=== PATIENT | female | born 1945 | race Caucasian/White ===

== ENCOUNTER 2016-03-19 17:07 | Inpatient (IN) | payer MEDICARE, BC ==
[~2016-03-19] VITALS: Ht 152.4 cm; Wt 67.7 kg
--- NOTE | 2016-03-19 17:21 | NUR ---
RECEIVED PT VIA WHEELCHAIR A DIRECT ADMIT. ORIENTED PT TO ROOM. OBTAINED HISTORY AND MED LIST. BED IN LOW POSITION AND CALL LIGHT WITHIN REACH. WILL CONTINUE TO MONITOR.
[2016-03-19] MEDS ORDERED: GLUCOPHAGE1000 MG PO (17:25)
[2016-03-19] MEDS ORDERED: BIAXIN 500 MG500 MG PO (17:25)
[2016-03-19] MEDS ORDERED: GLIPIZIDE10 MG PO (17:26)
[2016-03-19] MEDS ORDERED: BENICAR HCT 40-1 TA1 PO (17:26)
[2016-03-19] MEDS ORDERED: ADVAIR 250/501 DISK INH (17:26)
[2016-03-19] MEDS ORDERED: NORVASC2.5 MG PO (17:27)
[2016-03-19] MEDS ORDERED: ZOLOFT100 MG PO (17:28)
[2016-03-19] MEDS ORDERED: JANUVIA100 MG PO (17:28)
[2016-03-19] MEDS ORDERED: MOBIC7.5 MG PO (17:29)
[2016-03-19] MEDS ORDERED: FLUTICASONE PRO16 GM NASAL (17:29)
[2016-03-19] MEDS ORDERED: VICTOZA0.6 MG/0.1 SQ (17:32)
--- NOTE | 2016-03-19 18:20 | NUR ---
22G IV SITED TO THE RIGHT FOREARM. FLUSHED WITH 10CC OF NS AND SECURED WITH OP-SITE AND TAPE. FLUIDS STARTED TO IV SITE PER ORDER. URINE SPECIMEN OBTAINED AT THIS TIME. BED IN LOW POSITIOIN AND CALL LIGHT WITHIN REACH. WILL CONTINUE TO MONITOR.
[2016-03-19 18:30] VITALS: BP 143/67; Ht 152.4 cm; Wt 67.7 kg
[2016-03-19 18:47] LABS: BASOPHILS 0.1 % (0.0-2.0); EOSINOPHILS 0.1 % (0-7); HEMOGLOBIN 13.5 g/dL (12-16); IMMATURE GRANULOCYTES 0.4 % (0-5); LYMPHOCYTES 11.1 % (15-50); MCH 31.3 pg (26.0-34.0); MCHC 34.6 g/dL (31.0-37.0); MCV 90.5 fL (80.0-100.0); MEAN PLATELET VOLUME 9.2 fL (7.4-10.4); MONOCYTES 5.8 % (2-11); NEUTROPHILS 82.5 % (40-80); PLATELET COUNT 226 10x3/uL (130-400); RBC 4.31 10x6/uL (4.00-5.40); RDW 13.7 % (11.5-14.5); WBC 17.5 10x3/uL (4.8-10.8)
[2016-03-19 19:00] LABS: APPEARANCE HAZY (CLEAR); BILIRUBIN NEGATIVE (NEGATIVE); COLOR DK YELLOW (YELLOW); GLUCOSE NEGATIVE (NEGATIVE); KETONE SMALL mg/dL (NEGATIVE); LEUKOCYTE ESTERASE TRACE (NEGATIVE); NITRITE NEGATIVE (NEGATIVE); PROTEIN TRACE mg/dL (NEGATIVE); UROBILINOGEN NORMAL (NORMAL)
[2016-03-19 19:02] LABS: BACTERIA FEW /hpf (NONE SEEN); MUCUS <1+ /lpf (NONE SEEN); RED CELLS - URINE 0-5 /hpf (0-5)
[2016-03-19 19:02] LABS: ALBUMIN 3.2 g/dL (3.4-5.0); ALKALINE PHOSPHATASE 79 U/L (46-116); ALT (SGPT) 35 U/L (10-68); BILIRUBIN - TOTAL 0.52 mg/dL (0.2-1.3); CALC OSMOLALITY 272 mosm/kg (275-300); CALCIUM 9.3 mg/dL (8.5-10.1); CARBON DIOXIDE 26.6 mmol/L (21.0-32.0); CHLORIDE - SERUM 98 mmol/L (98-107); CREATININE - SERUM 0.7 mg/dL (0.6-1.3); GLUCOSE 152 mg/dL (74-106); POTASSIUM - SERUM 3.5 mmol/L (3.5-5.1); PROTEIN - SERUM 7.2 g/dL (6.4-8.2); SODIUM 135 mmol/L (136-145); UREA NITROGEN 13 mg/dL (7-18); eGFR NON AFRICAN AMERICAN 88 mL/min (90-120)
--- NOTE | 2016-03-19 19:45 | NUR ---
PT RECEIVED AT THIS TIME. DAUGHTER AT [facility]. PROVIDED PT WITH SANDWICH TRAY AND ICE WATER AT HER REQUEST. AKHIL FURTHER NEEDS AT THIS TIME. RESPIRATIONS EVEN, BUT SHALLOW. OXYGEN ON 2L VIA NC. DENIES NEEDS AT PRESENT TIME. CALL LIGHT IN REACH, WILL CONTINUE WITH PLAN OF CARE.
--- NOTE | 2016-03-19 21:26 | NUR ---
SCHEDULED MEDICATIONS ADMINISTERED AT THIS TIME. FSBS CHECKED AND PT 191. DISCUSSED WITH DR BRADLEY THAT PT IS ON AN INTERMEDIATE SLIDING SCALE ACHS AT HOME AND HE STATED THAT HE WOULD LOOK AT IT AND GET SOMETHING ORDERED. ASSESSMENT PERFORMED PER FLOWSHEET. AT BEDSIDE. BED IN LOWEST POSITION AND LOCKER, SRX1. CALL LIGHT IN REACH, WILL CONTINUE WITH PLAN OF CARE.
[2016-03-19] MEDS ORDERED: NOVOLOG100 U/M1 SC (22:18)
--- NOTE | 2016-03-19 23:59 | NUR ---
HUMALOG 4 UNITS ADMINISTERED PER SLIDING SCALE FOR FSBS 191. TYLENOL 1,000MG ADMINISTERED FOR RIGHT FLANK PAIN 6/10 SECONDARY TO PT'S KIDNEY STONE. DENIES FURTHER NEEDS, HOME C-PAP IN USE WITH 2L OF OXYGEN. CALL LIGHT IN REACH, BED IN LOWSEST POSITION AND PT DENIES FURTHER NEEDS. WILL CONTINUE WITH PLAN OF CARE.
[2016-03-20] VITALS: BP 121/59
--- NOTE | 2016-03-20 02:00 | NUR ---
ASSISTED PT UP TO BATHROOM WHERE SHE VOIDED WITHOUT DIFFICULTY AT THIS TIME. ASSISTED BACK TO BED, CALL LIGHT IN REACH AND C-PAP RE-APPLIED. WILL CONTINUE WITH PLAN OF CARE.
[2016-03-20 04:00] VITALS: BP 130/59
--- NOTE | 2016-03-20 05:48 | HP ---
PATIENT: KAYDEN MUJICA MEDICAL RECORD: [id number] ACCOUNT: [id number] LOCATION:D.MS [id number] : 45 ADMISSION DATE: 03/19/16 HISTORY AND PHYSICAL EXAMINATION REASON FOR ADMISSION: Cough with fevers. HISTORY OF PRESENT ILLNESS: The patient is a 70-year-old female with history of reactive airway disease and metabolic syndrome. She presented to my office last week and had symptoms of the flu, but was flu negative. She was treated with antibiotics and Medrol Dosepak. She felt much better until 3 days ago with the onset of fever as high as 101 in the last 3 days, increasing cough and congestion. In addition, she has known bilateral kidney stones and was due for lithotripsy tomorrow at [facility]. Her brought her in because she was having more cough and just felt generally bad and has had some nausea with intermittent vomiting, but denies abdominal pain. Her exam in the office, she was febrile with temperature of 100 degrees Fahrenheit. She had crackles in the right base and chest x-ray showing an early infiltrate. She is now admitted for IV antibiotics. PAST MEDICAL HISTORY: Asthmatic bronchitis, reactive airway disease, remote cholelithiasis, type 2 diabetes mellitus, diverticulosis, diverticulitis, hyperlipidemia, osteoarthritis, multiple renal stones, history of sciatic, cervicalgia and essential hypertension. PAST SURGICAL HISTORY: She has had TAHBSO and cystocele repair in 1997. HOME MEDICATIONS: Advair 250/50 one puff b.i.d., amlodipine 2.5 mg p.o. b.i.d., Benicar 40/25 one p.o. q.a.m., Flonase nasal spray 2 nasal sprays each nostril daily, glipizide 10 mg p.o. b.i.d., Januvia 100 mg p.o. daily, sertraline 100 mg p.o. daily and Victoza 18 mcg per 3 cc 1.2 mg subq daily. She is recently on clarithromycin 500 mg b.i.d. SOCIAL HISTORY: , nonsmoker and nondrinker. ALLERGIES: SULFA, LISINOPRIL AND STATIN. FAMILY HISTORY: Positive for hypertension and Parkinson disease. REVIEW OF SYSTEMS: GENERAL: She has had fever in the last few days as mentioned with fatigue and poor appetite. HEENT: No recent visual change, plus sinus congestion, no hearing difficulty or sore throat. RESPIRATORY: Intermittent cough has been minimally productive, now, having pain in her anterior chest when she coughs. Mild exertional dyspnea. No hemoptysis. GASTROINTESTINAL: She has had some nausea without vomiting, change in stools or blood per rectum. GENITOURINARY: She has had intermittent flank pain and intermittent dysuria, no hematuria. MUSCULOSKELETAL: Lumbago without sciatica. INTEGUMENT: No rash or itching. PSYCHIATRIC: Denies depress mood. PHYSICAL EXAMINATION: HISTORY AND PHYSICAL [id number] KAYDEN MUJICA VITAL SIGNS: Temperature is 100 degrees Fahrenheit, blood pressure 110/70, heart rate is 90 and regular and sats 93% on room air. GENERAL: The patient appears mildly ill. HEENT: Normocephalic. Eyes are clear. Throat with mild erythema. Nose with boggy turbinates. CHEST: She has some crackles and wheezes in the right base and left upper lobe. No E to A change. HEART: Regular rate and rhythm. ABDOMEN: Soft and nontender. PELVIC: Deferred. EXTREMITIES: No CC&E. LABORATORY DATA: Chest x-ray shows a right lower lobe infiltrate. ASSESSMENT: 1. Community-acquired pneumonia, right lower lobe. 2. History of reactive airway disease. 3. Metabolic syndrome. 4. Hypertension. PLAN: The patient will be admitted to the hospital for blood and urine cultures, pulmonary toilet with DuoNeb updrafts q.4 hours, IV fluids, IV Levaquin and Zithromax. Further workup to follow. We will cancel her lithotripsy for tomorrow. TRANSINT:[id number] Voice Confirmation ID: [id number] DOCUMENT ID: [id number] PHILL FERRARI MD at 0548 CC: [id number] DICTATION DATE: 03/19/161729 OUTSIDE PARTS SALESMAN: 03/19/162001 ADM IN [facility] [address] [place] [address]
[2016-03-20 06:34] LABS: BASOPHILS 0.2 % (0.0-2.0); EOSINOPHILS 0.8 % (0-7); HEMATOCRIT 35.7 % (36.0-48.0); IMMATURE GRANULOCYTES 0.5 % (0-5); LYMPHOCYTES 23.3 % (15-50); MCH 30.8 pg (26.0-34.0); MCHC 33.6 g/dL (31.0-37.0); MCV 91.5 fL (80.0-100.0); MEAN PLATELET VOLUME 8.9 fL (7.4-10.4); MONOCYTES 6.5 % (2-11); NEUTROPHILS 68.7 % (40-80); PLATELET COUNT 214 10x3/uL (130-400); RDW 13.8 % (11.5-14.5); WBC 13.2 10x3/uL (4.8-10.8)
[2016-03-20 06:40] LABS: CALC OSMOLALITY 276 mosm/kg (275-300); CALCIUM 8.7 mg/dL (8.5-10.1); CARBON DIOXIDE 27.1 mmol/L (21.0-32.0); CHLORIDE - SERUM 102 mmol/L (98-107); CREATININE - SERUM 0.7 mg/dL (0.6-1.3); GLUCOSE 107 mg/dL (74-106); POTASSIUM - SERUM 3.6 mmol/L (3.5-5.1); SODIUM 139 mmol/L (136-145); UREA NITROGEN 11 mg/dL (7-18); eGFR NON AFRICAN AMERICAN 88 mL/min (90-120)
--- NOTE | 2016-03-20 07:30 | NUR ---
RECIEVED PT DURING WALKING ROUNDS. PT RESTING IN BED WITH COMPLAINTS OF FLANK PAIN OF A 6 ON A SCALE OF 1-10. ASSESSMENT DONE PER FLOWSHEET. BED IN LOW POSITION AND CALL LIGHT WITHIN REACH. WILL CONTINUE TO MONITOR.
[2016-03-20 07:59] VITALS: BP 127/68
--- NOTE | 2016-03-20 08:39 | NUR ---
PAIN MEDICATION GIVEN PER ORDER AT THIS TIME.
--- NOTE | 2016-03-20 10:13 | NUR ---
SPOKE WITH PT AT THIS TIME, STATES PAIN IS NOT MUCH BETTER. RATES THE PAIN AT A 5 ON A SCALE OF 1-10. SPOKE WITH DR. FERRARI NURSE AT THIS TIME AND RECIEVED AN ORDER FOR A K-PAD FOR FLANK PAIN. WILL PLACE ORDER AND CONTINUE TO MONITOR.
--- NOTE | 2016-03-20 10:15 | NUR ---
PATIENT UP AMBULATING IN HALLWAY WITH PT. NO SIGNS OF DISTRESS NOTED.
[2016-03-20 11:45] VITALS: BP 135/60
--- NOTE | 2016-03-20 15:25 | NUR ---
Patient Name: KAYDEN MUJICA Admission Status: Urgent Accout number: [id number] Admission Date: 03-19-2016 : 1945 Admission Diagnosis: Attending: WES Current LOS: 1 Anticipated DC Date: 03-23-2016 Planned Disposition: Home Primary Insurance: MEDICARE A & B Discharge Planning Comments: CM MET WITH PATIENT REGARDING D/C NEEDS AND PLANS. PATIENT STATED SHE LIVES WITH HER SPOUSE (YAZMIN) AND HE WILL PICK HER UP AT DISCHARGE. PATIENT STATED THERE ARE 15 STEPS W/RAILS TO ENTER HOME AND 1 FLIGHT W/RAILS INSIDE HOME. PATIENT IS INDEPENDENT WITH HER CARE AND HAS NO DME AT HOME. PATIENTS PCP IS DR. FERRARI AND PHARMACY IS [facility]. PATIENT DOES NOT WANT HH AT DISCHARGE. CM WILL CONTINUE TO FOLLOW PATIENT WITH D/C NEEDS AND PLANS. PCP [facility] [phone] YAZMIN MUJICA (SPOUSE) [phone] Cosmetic Manager: Dawn Renteria Is the patient Alert and Oriented? Yes 0 * How many steps to enter\exit or inside your home? 15 W/RAILS 0 * PCP DR. FERRARI 0 * Pharmacy [facility] 0 * Preadmission Environment Home with Family 0 * ADLs Independent 0 * Equipment None 0 * List name and contact numbers for known caregivers / representatives who currently or will assist patient after discharge: YAZMIN MUJICA (SPOUSE) [phone] 0 * Community resources currently utilized None 0 * Additional services required to return to the preadmission environment? Yes 0 * Can the patient safely return to the preadmission environment? Yes 0 * Has this patient been hospitalized within the prior 30 days at any hospital? No 0 Grand Total: 0
[2016-03-20 15:46] VITALS: BP 118/61
[2016-03-20 19:00] VITALS: BP 141/54
--- NOTE | 2016-03-20 22:47 | NUR ---
SCHEDULED MEDICATIONS ADMINISTERED AT THIS TIME. FSBS 159 AND TREATED WITH 2 UNITS OF HUMULIN PER SLIDING SCALE. ASSESSMENT PERFORMED PER FLOW SHEET. PT USING HOME C-PAP WITH 2L OF OXYGEN AT THIS TIME. DENIES PAIN OR NEEDS. CALL LIGHT IN REACH, BED IN LOWEST POSITION AND LOCKED. WILL CONTINUE WITH PLAN OF CARE.
[2016-03-21] VITALS: BP 118/52
--- NOTE | 2016-03-21 | NUR ---
PT COMPLAINS THAT IV TO RIGHT FOREARM IS TENDER TO TOUCH. IV SITE CHECKED FOR BLOOD RETURN, WHICH THERE WASN'T ANY. 22G IV SITED TO PT'S LEFT FOREARM X3 ATTEMPTS. PT TOLERATED WITH MINIMAL C/O PAIN. EXISTING IV TO RIGHT FOREARM D/C WITH CATH TIP INTACT. IV FLUIDS AND ANTIBIOTIC INFUSION RE-INIATED. DENIES NEEDS AT PRESENT TIME. CALL LIGHT IN REACH, WILL CONTINUE WITH PLAN OF CARE.
[2016-03-21 04:00] VITALS: BP 140/62
[2016-03-21 06:21] LABS: BASOPHILS 0.3 % (0.0-2.0); EOSINOPHILS 2.4 % (0-7); HEMATOCRIT 34.4 % (36.0-48.0); HEMOGLOBIN 11.3 g/dL (12-16); IMMATURE GRANULOCYTES 1.1 % (0-5); LYMPHOCYTES 36.4 % (15-50); MCH 30.3 pg (26.0-34.0); MCHC 32.8 g/dL (31.0-37.0); MCV 92.2 fL (80.0-100.0); MEAN PLATELET VOLUME 8.9 fL (7.4-10.4); MONOCYTES 7.9 % (2-11); NEUTROPHILS 51.9 % (40-80); PLATELET COUNT 220 10x3/uL (130-400); RBC 3.73 10x6/uL (4.00-5.40); RDW 13.9 % (11.5-14.5)
[2016-03-21 06:31] LABS: WBC 7.9 10x3/uL (4.8-10.8)
[2016-03-21 06:38] LABS: CALC OSMOLALITY 280 mosm/kg (275-300); CARBON DIOXIDE 27.7 mmol/L (21.0-32.0); CHLORIDE - SERUM 104 mmol/L (98-107); CREATININE - SERUM 0.6 mg/dL (0.6-1.3); GLUCOSE 147 mg/dL (74-106); POTASSIUM - SERUM 3.7 mmol/L (3.5-5.1); SODIUM 140 mmol/L (136-145); UREA NITROGEN 11 mg/dL (7-18); eGFR NON AFRICAN AMERICAN > 90 mL/min (90-120)
--- NOTE | 2016-03-21 07:45 | NUR ---
PT AWAKE AND ALERT SOUSE AT BEDSIDE NO ACUTE DISTRESS NOTED VOICES ALL NEEDS TO STAFF FOLLOWS COMMANDS. PIV PATENT TO LFA NS AT 100
[2016-03-21 07:48] VITALS: BP 141/69
--- NOTE | 2016-03-21 08:43 | NUR ---
PATIENT AWAKE, ALERT AND ORIENTED X'S 4. PATIENT AMBULATING IN HER ROOM. GAIT STEADY. NO SIGNS OF DISTRESS. PATIENT DENIES NEEDS.
--- NOTE | 2016-03-21 11:30 | NUR ---
FSBS 131 NO COVERAGE NEEDED WILL CONTINUE TO MONITOR PT HAS SIDE RAILSUP X 2 CALL ALY
[2016-03-21 11:51] VITALS: BP 144/60
[2016-03-21 16:07] VITALS: BP 146/61
--- NOTE | 2016-03-21 16:30 | NUR ---
FSBS 167 PT REFUSED INSULIN STATED LETS JUST WAIT TILL BEDTIME AND SEE IF I STILL NEED COVERAGE. NO ACUTE DISTRESS NTOED SITTING UP IN CHAIR AT BEDSIDE. CALL LIGHT IN REACH
--- NOTE | 2016-03-21 18:28 | NUR ---
NO DISTRESS NOTED SPOUSE AT SIDE AWAKE AND ALERT PIV PATENT TO LEVOQUIN AT THIS TIME. WILL MONITOR.
[2016-03-21 20:00] VITALS: BP 139/60
[2016-03-22] VITALS: BP 139/56
--- NOTE | 2016-03-22 03:07 | NUR ---
PT WAS ASSESSED AT THE ABEGINNING OF THE SHIFT. SHE IS ALERT AND ORIENTED, ABLE TO VERBALIZE NEEDS. SHE SAT UP IN A CHAIR FOR QUITE A BIT OF TIME WHILE WAITING ON THE NURSE. SHE HAS TAKEN HER MEDS ORDERED AND EVEN RECEIVED BEFORE THE SHIFT CHANGE. WHEN HER BLOOD SUGAR WAS TAKEN IT WAS 157 AND SHE DECEIDED TO HOLD OFF ON THE S/S SCALE INSULIN TO MAKE SURE SHE WAS NOT TOO LOW LATER. THE BED IS LOW, RAILS UP X'S 2 WITH THE CALL LIGHT AT HAND.
[2016-03-22 04:00] VITALS: BP 123/86
--- NOTE | 2016-03-22 07:00 | NUR ---
REPORT RECEIVED FROM LINER ROLL CHANGER NURSE. CALL LIGHT IN REACH.
--- NOTE | 2016-03-22 07:50 | NUR ---
,CALL LIGHT IN REACHLYING ON RIGHT SIDE,WITHOUT DISTRESS.FAMILY AT BEDSIDE
[2016-03-22 08:10] VITALS: BP 137/81
--- NOTE | 2016-03-22 08:10 | NUR ---
ASSESSMENT COMPLETED. AM MEDS ADMINISTERED. REFUSES SCDs AT THIS TIME. CALL LIGHT IN REACH. WILL CONTINUE WITH PLAN OF CARE.
--- NOTE | 2016-03-22 10:41 | NUR ---
RESTING WITH EYES CLOSED. RESP EVEN AND UNLABORED. CALL LIGHT IN REACH.
--- NOTE | 2016-03-22 12:05 | NUR ---
AMBULATED IN HALLWAY ADLIB WITH PT WITH STANDBY ASSIST. TOLERATED WELL.
[2016-03-22 12:30] VITALS: BP 148/70
--- NOTE | 2016-03-22 14:50 | NUR ---
STATES HER PAIN IS A 4 BUT STILL WANTS TO WAIT ON PAIN MEDS.
--- NOTE | 2016-03-22 15:28 | NUR ---
WALKING IN [place] AGAIN. NO NEEDS VOICED.
[2016-03-22 16:34] VITALS: BP 144/64
--- NOTE | 2016-03-22 16:48 | NUR ---
HUMALOG 2 UNITS SUBQ TO ARM D/T BLOOD SUGAR OF 188. PATIENT STILL WANTS TO WAIT JUST A BIT ON PAIN MEDS.
--- NOTE | 2016-03-22 18:32 | NUR ---
ELLE IVPB. NO OTHER CHANGES IN INITIAL ASSESSMENT. STILL REFUSES SCDs. CALL LIGHT IN REACH. WILL CONTINUE WITH PLAN OF CARE.
--- NOTE | 2016-03-22 19:31 | NUR ---
WALKED FOR THE 3RD TIME IN HALLWAY ADLIB.
[2016-03-22 20:00] VITALS: BP 148/65
--- NOTE | 2016-03-22 20:00 | NUR ---
ASSESSMENT PER FLOWSHEET. IV PATENT LEFT FOREARM OF NS AT 10 CC'S/HR. SITE CLEAR. KPAD TO LOWER BACK. FAMILY MEMBER AT BEDSIDE. PT DENIES NEEDS.
--- NOTE | 2016-03-22 21:23 | NUR ---
MEDS GIVEN PER MAY. TMKH=347. 4 UNITS REGULAR INSULIN GIVEN SUBC PER S/S.
--- NOTE | 2016-03-22 22:12 | NUR ---
C/O BACK PAIN NORCO 5 TAB 2 PO GIVEN FOR CHRONIC BACK PAIN.
[2016-03-23] VITALS: BP 146/64
--- NOTE | 2016-03-23 | NUR ---
EYES CLOSED RESPIRATIONS WITH EASE AND UNLABORED.
--- NOTE | 2016-03-23 02:57 | NUR ---
RESTING QUIETLY NO COMPLAINTS.
[2016-03-23 04:00] VITALS: BP 150/79
--- NOTE | 2016-03-23 07:30 | NUR ---
AWAKE ALERT COLOR ADQ SKIN WARM AND DRY BS DIMINISHED LOWER LOBE AT THIS.RESP EVEN AND UNLABORED AT PRESENT DENIES ANY NEEDS AT THIS TIME.
[2016-03-23 07:56] VITALS: BP 155/69
--- NOTE | 2016-03-23 09:15 | NUR ---
MEDS GIVEN SHAYY WELL AT PRESENT DENIES ANY NEEDS AT THIS TIME.
--- NOTE | 2016-03-23 11:00 | NUR ---
TAKING LIQS WELL AND RET AT PRESENT.
--- NOTE | 2016-03-23 13:00 | NUR ---
MAO IN [facility] SHAYY WELL AT PRESENT N/C VOICED AT PRESENT.
[2016-03-23 13:02] VITALS: BP 151/61
--- NOTE | 2016-03-23 15:00 | NUR ---
SITTING UP IN CHAIR AT PRESENT NO NOTED RESP DISTRESS AT PRESENT.
[2016-03-23 15:56] VITALS: BP 142/59
--- NOTE | 2016-03-23 17:44 | NUR ---
STATUS REMAINS UNCHGD AT PRESENT.
--- NOTE | 2016-03-23 19:30 | NUR ---
AWAKE ALERT ORIENTED X3 AMBULATING IN HALLS WITH SPOUSE. PT ON ROOM AIR. NO DISTRESS. IV PATENT LEFT FOREARM AT 10CC'S/HR SITE CLEAR. ASSESSMENT PER FLOWSHEET.
[2016-03-23 21:00] VITALS: BP 148/72
--- NOTE | 2016-03-23 21:30 | NUR ---
MEDS GIVEN PER MAY. BJKG=560 4 UNITS REGULAR INSULIN GIVEN SUBC RT ARM PER S/S
--- NOTE | 2016-03-23 23:19 | NUR ---
EYES CLOSED RESPIRATIONS WITH EASE AND UNLABORED IV CHANGED TO SALINE LOCK. USED FOR ANTIBIOTIC THERAPY.
[2016-03-24 01:00] VITALS: BP 155/68
[2016-03-24 04:00] VITALS: BP 170/76
--- NOTE | 2016-03-24 07:34 | NUR ---
SLEEPING QUIETLY AT PRESENT RESP EVEN AND UNLABORED AT BEDSIDE.
[2016-03-24 08:36] VITALS: BP 148/71
--- NOTE | 2016-03-24 09:15 | NUR ---
MEDS GIVEN SHAYY WELL AT PRESENT DENIES ANY NEEDS AT THIS TIME OCC COUGH WHEN TAKES A DEEP BREATH.
--- NOTE | 2016-03-24 10:50 | NUR ---
UP AMB IN HALLWAY AT PRESENT DENIES ANY OTHER NEEDS AT THIS TIME.
--- NOTE | 2016-03-24 11:35 | NUR ---
NORCO 5 2 TABS PO FOR TEMP AT PRESENT.
[2016-03-24 12:28] VITALS: BP 147/56
[2016-03-24 15:08] LABS: BASOPHILS 0.2 % (0.0-2.0); EOSINOPHILS 2.2 % (0-7); HEMATOCRIT 37.9 % (36.0-48.0); HEMOGLOBIN 12.7 g/dL (12-16); IMMATURE GRANULOCYTES 2.3 % (0-5); LYMPHOCYTES 27.1 % (15-50); MCH 30.6 pg (26.0-34.0); MCHC 33.5 g/dL (31.0-37.0); MCV 91.3 fL (80.0-100.0); MEAN PLATELET VOLUME 8.9 fL (7.4-10.4); MONOCYTES 8.4 % (2-11); NEUTROPHILS 59.8 % (40-80); PLATELET COUNT 263 10x3/uL (130-400); RBC 4.15 10x6/uL (4.00-5.40); RDW 13.6 % (11.5-14.5); WBC 12.1 10x3/uL (4.8-10.8)
[2016-03-24 16:45] VITALS: BP 145/72
[2016-03-24 18:40] LABS: APPEARANCE CLEAR (CLEAR); COLOR YELLOW (YELLOW)
[2016-03-24 18:41] LABS: BILIRUBIN NEGATIVE (NEGATIVE); GLUCOSE NEGATIVE (NEGATIVE); KETONE NEGATIVE (NEGATIVE); LEUKOCYTE ESTERASE NEGATIVE (NEGATIVE); NITRITE NEGATIVE (NEGATIVE); PROTEIN NEGATIVE (NEGATIVE); UROBILINOGEN NORMAL (NORMAL)
--- NOTE | 2016-03-24 19:26 | NUR ---
PATIENT SITTING IN CHAIR TALKING WITH . IVABX INFUSING THROUGH 22G CATH TO LFA. NO COMPLAINTS AT THIS TIME. A&Ox3
[2016-03-24 21:00] VITALS: BP 153/93
--- NOTE | 2016-03-24 22:30 | NUR ---
LYING SUPINE WITH HOB FLAT AT THIS TIME. HOME C-PAP IN USE. PT DENIES NEEDS. SCD'S OFF AND NO BED ALARM NEEDED. RESPIRATIONS EVEN AND NON LABORED. CALL LIGHT IN REACH, WILL CONTINUE WITH PLAN OF CARE.
[2016-03-25 01:00] VITALS: BP 150/62
[2016-03-25 04:00] VITALS: BP 152/61
--- NOTE | 2016-03-25 07:00 | NUR ---
REPORT RECEIVED FROM POT RUNNER NURSE. CALL LIGHT IN REACH.
--- NOTE | 2016-03-25 07:55 | NUR ---
ASSESSMENT COMPLETED. AM MEDS ADMINISTERED. STATES PAIN IS A 7 BUT DOES NOT WANT PAIN MEDS AT THIS TIME. REFUSES SCDs. VISITOR IN ROOM. CALL LIGHT IN REACH. WILL CONTINUE WITH PLAN OF CARE.
[2016-03-25 07:56] VITALS: BP 145/62
[2016-03-25] MEDS ORDERED: LEVAQUIN750 MG PO (08:25)
--- NOTE | 2016-03-25 08:44 | NUR ---
CM REASSESSMENT NOTE: PATIENT IS DISCHARGING HOME TODAY BY PRIVATE CAR. PATIENT DENIED ANY NEEDS AT DISCHARGE.
--- NOTE | 2016-03-25 09:11 | NUR ---
IV DC'D WITH TIP INTACT.
--- NOTE | 2016-03-25 10:28 | NUR ---
PATIENT IS ALERT AND ORIENTED. SITTING IN CHAIR AT THIS TIME FULLY DRESSED AND READY TO GO. PATIENT DENIES ANY NEEDS AT THIS TIME. IS AT BEDSIDE
--- NOTE | 2016-03-25 10:56 | NUR ---
DC'D TO VEHICLE VIA WC WITH .
--- NOTE | 2016-04-21 06:10 | DS ---
PATIENT:KAYDEN MUJICA :45 MEDICAL RECORD: [id number] DISCHARGE SUMMARY ADMISSION DATE: 03/19/16 DISCHARGE DATE: 03/25/16 DISCHARGE DIAGNOSES: Bilobar community-acquired pneumonia, adult-onset diabetes mellitus, hypertension, reactive airway disease, and metabolic syndrome. HOSPITAL COURSE: 70-year-old female with failed treatment for bronchitis. X-ray in the office did show progressive right lower lobe pneumonia. The patient was admitted with updrafts and IV antibiotics. Additionally, the patient had been scheduled for lithotripsy and that was canceled. KUB did not show evidence of retained stones. Serial chest x-ray shows improvement in her pulmonary infiltrates. Overall, she is feeling better. She has been afebrile in the last 24 hours, blood pressure 145/62, temperature 98.4, room air O2 sat is now 94%. Recent labs showed a white count of 12,000, H&H of 12 and 37.9 respectively. UA is clear. Blood and urine cultures were negative. The patient will be discharged today in improved condition. DISCHARGE MEDICATIONS: Levaquin 750 mg p.o. daily for 4 days and discontinue, Biaxin 500 mg p.o. b.i.d. for 7 days and discontinue, Glucophage 1000 mg p.o. b.i.d. a.c., Glucotrol 10 mg p.o. b.i.d. a.c., Benicar HCT 40/25 one p.o. q.a.m., Advair Diskus 250/50 one puff b.i.d., Norvasc 2.5 mg p.o. b.i.d., Zoloft 100 mg a day, Januvia 100 mg a day, Flonase nasal spray 1 nasal spray each nostril b.i.d., Mobic 7.5 mg daily, Victoza 1.5 mg subq daily. DIET: 2000 calorie ADA. ACTIVITY: As tolerated. FOLLOWUP: Return to clinic to see Dr. Villegas for reasons per his orders. See me in 1 week. TRANSINT:[id number] Voice Confirmation ID: [id number] DOCUMENT ID: [id number] PHILL FERRARI MD at 0610 CC: [id number] DICTATION DATE: 03/25/1631 JAVA PROGRAMMER: 03/25/16 0853 DIS IN 03/25/16 [place] [id number] [place] [id number]
== END 2016-03-25 10:56 | disposition home or self-care (01) | DRG 195 ==
LOC: D.MS 17:07
PROVIDERS: Family Medicine; ADMIT Family Medicine
DX: J18.9 Pneumonia, unspecified organism (principal); J45.909 Unspecified asthma, uncomplicated; E11.9 Type 2 diabetes mellitus without complications; E78.5 Hyperlipidemia, unspecified; R91.8 Other nonspecific abnormal finding of lung field; E88.81 Metabolic syndrome and other insulin resistance; N20.0 Calculus of kidney

== ENCOUNTER 2017-07-05 14:44 | Inpatient (IN) | payer MEDICARE, BC ==
[~2017-07-05] VITALS: Ht 152.4 cm; Wt 71.8 kg
--- NOTE | ~2017-07-05 | OP ---
PATIENT NAME: KAYDEN MUJICA MEDICAL RECORD: [id number] :45 LOCATION:D. D.2101 ADMISSION DATE:07/06/17 SURGEON: YARIEL DEVRIES MD DATE OF OPERATION: 07/09/2017 SURGEON: Yariel Devries MD ANESTHESIA: MAC by Emanuel Gary MD PREOPERATIVE DIAGNOSIS: Retained right ureteral stent. PROCEDURES: Cystoscopy and stent removal. SPECIMEN: Right ureteral stent. BLOOD LOSS: None. CLINICAL HISTORY: This is a 71-year-old female who has a history of kidney stones. Recently, she had right ureteroscopy to remove a 5-mm stone. This was done at [facility] by Dr. Villegas. She was supposed to have the right ureteral stent removed this Thursday, but she has been at our hospital for COPD exacerbation. She wishes to have the stent removed while she is still in the hospital. She ate breakfast today and therefore we had to wait 8 hours afterwards in order to give her some sedation. She was given 40 mg of gentamicin IV on-call to the OR. PROCEDURE: The patient was given IV sedation. She was placed in the dorsal lithotomy position and prepped and draped. A 21-[place] cystoscope with 30-degree lens was used. The stent was visualized and the entire stent was removed using flexible graspers. The stent was then sent to pathology as a specimen. The entire procedure took less than 30 seconds. The patient was then brought back to her hospital room. TRANSINT:[id number] Voice Confirmation ID: [id number] DOCUMENT ID: [id number] YARIEL DEVRIES MD at 1109 CC: [id number] DICTATION DATE: 07/09/171730 CONTRACT NEGOTIATOR: 07/09/172019 ADM IN [place] [id number] [place] [address]
--- NOTE | ~2017-07-05 | EC ---
PATIENT:KAYDEN MUJICA DATE OF SERVICE: 07/06/17 SEX: F MEDICAL RECORD: [id number] DATE OF : 45 LOCATION:D.M2 D.210 AGE OF PATIENT: 71 ADMISSION DATE: 07/06/17 REFERRING PHYSICIAN: INTERPRETING PHYSICIAN: BECKIE WINTERS MD ECHOCARDIOGRAM REPORT ECHO CHARGES 4 ECHO COMPLETE Date: 07/06 CLINICAL DIAGNOSIS: DYSPNEA ECHOCARDIOGRAPHIC MEASUREMENTS (adult normal given) AC root (d.<3.7cm) 2.5 cm LV Septum d (<1.2 cm> 1.7 cm Valve Excursion 1.6 cm LV Septum (systole) 2.3 cm Left Atria (s.<4.0cm> 4.1 cm LVPW d(<1.2cm) 1.6 cm RV (d.<2.3cm) 2.3 cm LVPW (sytole) 2.3 cm LV diastole(<5.6CM) 4.3 cm MV E-F(>70mm/sec) cm LV systole 2.4 cm LVOT Diameter 1.7 cm MV exc.(>10mm) cm Est.ejection fraction (50-75%) % DOPPLER: LVIT cm/sec A 95.0 cm/sec E 100 cm/sec LA cm/sec RVSP 24.0 mmHg LVOT 125 cm/sec AOP1/2T m/s Asc. Ao 182 cm/sec RVOT 83.0 cm/sec RA cm/sec PA 107 cm/sec AV Gradient Peak 13.3 mmHg AV Mean 6.4 mmHg AV Area 1.5 cm MV Gradient Peak 6.3 mmHg MV Mean 2.1 mmHg MV Area cm COMMENTS: Certified Credit Counselor: 1 AJITH LANGSTONOE Pharmacology Associate: 1 Dr. Winters TAPE# PACS Pericardial Effusion N DATE OF SERVICE: FINDINGS: 1. Left ventricular chamber size is within normal limits. Left ventricular systolic function is normal. Overall ejection fraction estimated at 55%. 2. Left atrium is enlarged at 4.1 cm. Right atrium and right ventricular chamber sizes are upper limits of normal. 3. Valvular structures have normal structure and motion. 4. Doppler interrogation reveals mild mitral regurgitation, mild tricuspid regurgitation. No other valvular insufficiency or stenosis. Pulmonary systolic ECHOCARDIOGRAM REPORT [id number] KAYDEN MUJICA pressure is normal, estimated 24 mmHg. 5. No evidence of pericardial effusion or left ventricular thrombus. TRANSINT:[id number] Voice Confirmation ID: [id number] DOCUMENT ID: [id number] BECKIE WINTERS MD at 0956 CC: [id number] DICTATION DATE: 07/07/17 1133 LIGHTING DIRECTOR: 07/07/17 1435 DIS IN 07/11/17 [place] [id number] [place] [id number]
[~2017-07-05 14:44] MED LIST: ADVAIR 250/501 DISK INH; BENICAR HCT 40-1 TA1 PO; BIAXIN 500 MG500 MG PO; FLUTICASONE PRO16 GM NASAL; GLIPIZIDE10 MG PO; GLUCOPHAGE1000 MG PO; JANUVIA100 MG PO; LEVAQUIN750 MG PO; MOBIC7.5 MG PO; NORVASC2.5 MG PO; NOVOLOG100 U/M1 SC; VICTOZA0.6 MG/0.1 SQ; ZOLOFT100 MG PO
[2017-07-05 16:08] LABS: BASOPHILS 0.5 % (0-2); EOSINOPHILS 4.3 % (0-7); HEMATOCRIT 38.6 % (36.0-48.0); HEMOGLOBIN 13.1 g/dL (12-16); IMMATURE GRANULOCYTES 0.3 % (0-5); LYMPHOCYTES 25.2 % (15-50); MCHC 33.9 g/dL (31.0-37.0); MCV 91.3 fL (80.0-100.0); MONOCYTES 7.8 % (2-11); NEUTROPHILS 61.9 % (40-80); PLATELET COUNT 256 10x3/uL (130-400); RBC 4.23 10x6/uL (4.00-5.40); RDW 13.2 % (11.5-14.5); WBC 9.1 10x3/uL (4.8-10.8)
[2017-07-05 16:13] LABS: ALBUMIN 3.5 g/dL (3.4-5.0); ALKALINE PHOSPHATASE 70 U/L (46-116); ALT (SGPT) 22 U/L (10-68); BILIRUBIN - TOTAL 0.37 mg/dL (0.2-1.3); CALC OSMOLALITY 281 mosm/kg (275-300); CARBON DIOXIDE 27.4 mmol/L (21.0-32.0); CHLORIDE - SERUM 101 mmol/L (98-107); CREATININE - SERUM 0.7 mg/dL (0.6-1.3); GLUCOSE 152 mg/dL (74-106); POTASSIUM - SERUM 3.2 mmol/L (3.5-5.1); PROTEIN - SERUM 7.1 g/dL (6.4-8.2); SODIUM 139 mmol/L (136-145); UREA NITROGEN 14 mg/dL (7-18); eGFR NON AFRICAN AMERICAN 87 mL/min (90-120)
[2017-07-05 16:35] LABS: TROPONIN-I 0.026 ng/mL (0.000-0.060)
[2017-07-05 20:00] VITALS: BP 155/64
[2017-07-06 01:00] VITALS: BP 148/57
[2017-07-06 01:10] VITALS: BMI 28.3
[2017-07-06 05:00] VITALS: BP 144/65
[2017-07-06 05:19] LABS: BASOPHILS 0.6 % (0-2); EOSINOPHILS 5.4 % (0-7); HEMATOCRIT 37.1 % (36.0-48.0); HEMOGLOBIN 12.5 g/dL (12-16); IMMATURE GRANULOCYTES 0.3 % (0-5); MCH 30.7 pg (26.0-34.0); MCHC 33.7 g/dL (31.0-37.0); MCV 91.2 fL (80.0-100.0); MEAN PLATELET VOLUME 9.1 fL (7.4-10.4); MONOCYTES 11.3 % (2-11); NEUTROPHILS 53.4 % (40-80); PLATELET COUNT 258 10x3/uL (130-400); RBC 4.07 10x6/uL (4.00-5.40); RDW 13.1 % (11.5-14.5); WBC 8.7 10x3/uL (4.8-10.8)
[2017-07-06 05:44] LABS: CALC OSMOLALITY 280 mosm/kg (275-300); CARBON DIOXIDE 26.6 mmol/L (21.0-32.0); CHLORIDE - SERUM 102 mmol/L (98-107); CREATININE - SERUM 0.7 mg/dL (0.6-1.3); GLUCOSE 139 mg/dL (74-106); POTASSIUM - SERUM 3.2 mmol/L (3.5-5.1); SODIUM 140 mmol/L (136-145); TROPONIN-I 0.024 ng/mL (0.000-0.060); UREA NITROGEN 12 mg/dL (7-18); eGFR NON AFRICAN AMERICAN 87 mL/min (90-120)
[2017-07-06 08:30] VITALS: BP 138/70
[2017-07-06 11:28] VITALS: BP 146/64
[2017-07-06 15:45] VITALS: BP 150/61
[2017-07-06 20:29] VITALS: BP 177/72
[2017-07-07 01:05] VITALS: BP 150/57
[2017-07-07 05:58] VITALS: BP 156/75
[2017-07-07 08:21] VITALS: BP 151/60
[2017-07-07 09:33] LABS: CALC OSMOLALITY 284 mosm/kg (275-300); CALCIUM 8.9 mg/dL (8.5-10.1); CARBON DIOXIDE 26.9 mmol/L (21.0-32.0); CHLORIDE - SERUM 103 mmol/L (98-107); CREATININE - SERUM 0.6 mg/dL (0.6-1.3); POTASSIUM - SERUM 3.4 mmol/L (3.5-5.1); SODIUM 140 mmol/L (136-145); UREA NITROGEN 10 mg/dL (7-18); eGFR NON AFRICAN AMERICAN > 90 mL/min (90-120)
[2017-07-07 09:36] LABS: GLUCOSE 221 mg/dL (74-106)
[2017-07-07 13:51] VITALS: BP 168/76
[2017-07-07 17:01] VITALS: BP 143/56
[2017-07-07 21:03] VITALS: BP 165/71
[2017-07-08 01:23] VITALS: BP 109/67
[2017-07-08 05:29] VITALS: BP 148/78
[2017-07-08 08:56] LABS: MAGNESIUM - SERUM 1.6 mg/dL (1.8-2.4); PHOSPHOROUS 2.4 mg/dL (2.5-4.9)
[2017-07-08 10:15] VITALS: BP 152/72
[2017-07-08 12:31] VITALS: BP 157/73
[2017-07-08 18:21] VITALS: BP 141/64
[2017-07-08 20:54] VITALS: BP 114/69
[2017-07-09 01:59] VITALS: BP 040/72
[2017-07-09 05:57] VITALS: BP 153/70
[2017-07-09 06:34] LABS: CALC OSMOLALITY 289 mosm/kg (275-300); CALCIUM 8.7 mg/dL (8.5-10.1); CARBON DIOXIDE 24.4 mmol/L (21.0-32.0); CHLORIDE - SERUM 104 mmol/L (98-107); CREATININE - SERUM 0.7 mg/dL (0.6-1.3); GLUCOSE 271 mg/dL (74-106); POTASSIUM - SERUM 3.8 mmol/L (3.5-5.1); SODIUM 140 mmol/L (136-145); UREA NITROGEN 14 mg/dL (7-18); eGFR NON AFRICAN AMERICAN 87 mL/min (90-120)
[2017-07-09 07:00] VITALS: BP 154/64
[2017-07-09 09:20] VITALS: Ht 152.4 cm; Wt 71.8 kg
[2017-07-09 13:38] VITALS: BP 150/65
[2017-07-09 17:12] VITALS: BP 157/75
[2017-07-09 20:00] VITALS: BP 152/88
[2017-07-10 01:00] VITALS: BP 114/66
[2017-07-10 04:30] VITALS: BP 140/56
[2017-07-10 05:30] LABS: BASOPHILS 0.1 % (0-2); EOSINOPHILS 0.1 % (0-7); HEMOGLOBIN 12.2 g/dL (12-16); IMMATURE GRANULOCYTES 0.5 % (0-5); LYMPHOCYTES 12.4 % (15-50); MCH 30.8 pg (26.0-34.0); MCHC 33.9 g/dL (31.0-37.0); MCV 90.9 fL (80.0-100.0); MEAN PLATELET VOLUME 8.9 fL (7.4-10.4); MONOCYTES 1.2 % (2-11); NEUTROPHILS 85.7 % (40-80); PLATELET COUNT 268 10x3/uL (130-400); RBC 3.96 10x6/uL (4.00-5.40); WBC 8.3 10x3/uL (4.8-10.8)
[2017-07-10 05:57] LABS: CALC OSMOLALITY 289 mosm/kg (275-300); CALCIUM 8.4 mg/dL (8.5-10.1); CARBON DIOXIDE 24.1 mmol/L (21.0-32.0); CHLORIDE - SERUM 104 mmol/L (98-107); CREATININE - SERUM 0.8 mg/dL (0.6-1.3); GLUCOSE 334 mg/dL (74-106); MAGNESIUM - SERUM 1.4 mg/dL (1.8-2.4); PHOSPHOROUS 3.6 mg/dL (2.5-4.9); POTASSIUM - SERUM 3.6 mmol/L (3.5-5.1); SODIUM 138 mmol/L (136-145); UREA NITROGEN 15 mg/dL (7-18); eGFR NON AFRICAN AMERICAN 75 mL/min (90-120)
[2017-07-10 08:59] VITALS: BP 150/67
[2017-07-10 12:00] VITALS: BP 162/77
[2017-07-10 20:00] VITALS: BP 159/70
[2017-07-11 01:00] VITALS: BP 162/72
[2017-07-11 05:30] VITALS: BP 155/69
[2017-07-11] MEDS ORDERED: LEVAQUIN750 MG PO (08:49)
[2017-07-11] MEDS ORDERED: IPRAT-ALBUT 0.5-3 ML INH (08:50)
[2017-07-11] MEDS ORDERED: NORVASC2.5 MG PO (08:50)
[2017-07-11] MEDS ORDERED: NYSTATIN ORAL SU5 ML PO (08:50)
[2017-07-11] MEDS ORDERED: DIOVAN80 MG PO (08:51)
[2017-07-11 08:54] VITALS: BP 131/78
[2017-07-11] MEDS ORDERED: STERAPRED DS 1010 MG PO (08:54)
[2017-07-11] MEDS ORDERED: MUCINEX600 MG PO (08:55)
[2017-07-11] MEDS ORDERED: MAG-OX 400 MG400 MG PO (08:59)
[2017-07-11 10:53] LABS: IMMUNOGLOBULIN A 283 mg/dL (64-422); IMMUNOGLOBULIN G 664 mg/dL (700-1600)
[2017-07-11 12:33] VITALS: BP 157/72
[2017-07-17 07:34] LABS: IMMUNOGLOBULIN E 57 IU/mL (0-100)
== END 2017-07-11 12:48 | disposition home or self-care (01) | DRG 202 ==
LOC: D.ER 14:44 → D.EDHOLD 18:14 → D.M2 18:14 → OBSVTIME 18:14 → D.M2 19:38
PROVIDERS: Family Medicine; Internal Medicine Pulmonary Disease; Urology
PROC: 0TP98DZ Removal of Intraluminal Device from Ureter, Via Natural or Artificial Opening Endoscopic (ICD-10-PCS; principal; 2017-07-09 10:00)
DX: J45.901 Unspecified asthma with (acute) exacerbation (principal); B37.0 Candidal stomatitis; I47.1 Supraventricular tachycardia; J20.9 Acute bronchitis, unspecified; I10 Essential (primary) hypertension; E11.9 Type 2 diabetes mellitus without complications; K80.20 Calculus of gallbladder without cholecystitis without obstruction; E87.6 Hypokalemia; E83.42 Hypomagnesemia; J30.9 Allergic rhinitis, unspecified; G47.33 Obstructive sleep apnea (adult) (pediatric); F32.9 Major depressive disorder, single episode, unspecified; N20.0 Calculus of kidney

== ENCOUNTER → 2017-12-04 13:01 | Outpatient (CLI) | payer MEDICARE, BC ==
[2017-07-09 09:20] VITALS: BMI 28.3
[~2017-12-04 13:01] MED LIST changes: +DIOVAN80 MG PO; +IPRAT-ALBUT 0.5-3 ML INH; +MAG-OX 400 MG400 MG PO; +MUCINEX600 MG PO; +NYSTATIN ORAL SU5 ML PO; +STERAPRED DS 1010 MG PO
== END | disposition home or self-care (01) ==
LOC: D.RT 13:01 → D.CT 01-25 10:30 → D.RT 01-25 11:00
DX: R91.8 Other nonspecific abnormal finding of lung field (principal); J45.909 Unspecified asthma, uncomplicated

== ENCOUNTER → 2018-06-29 09:13 | Outpatient (CLI) | payer MEDICARE, BC | END | disposition home or self-care (01) | LOC: D.CT 09:13 | DX: R91.8 Other nonspecific abnormal finding of lung field (principal) ==

== ENCOUNTER → 2018-12-21 11:24 | Outpatient (CLI) | payer MEDICARE, BC ==
[2017-07-09 09:20] VITALS: BMI 28.3
== END | disposition home or self-care (01) ==
LOC: D.CT 11:24
PROVIDERS: ATTEND Internal Medicine Pulmonary Disease
DX: R91.8 Other nonspecific abnormal finding of lung field (principal)

== ENCOUNTER → 2019-01-12 15:20 | Outpatient (CLI) | payer MEDICARE, BC ==
[2017-07-09 09:20] VITALS: BMI 28.3
== END | disposition home or self-care (01) ==
LOC: D.MRI 15:20
PROVIDERS: ATTEND Family Medicine
DX: M54.5 Low back pain (principal)